=== PATIENT | female | born 1965 | race Caucasian/White ===

== ENCOUNTER 2017-06-29 14:07 | Emergency (ER) | payer OTHER ==
[~2017-06-29] VITALS: Ht 167.6 cm; Wt 82.0 kg
[2017-06-29 14:18] VITALS: BP 104/65; PULSE 67; RESP 17; TEMP 98.4; O2SAT 95
--- NOTE | 2017-06-29 14:29 | PD ---
HPI Chief Complaint: Fall Time Seen by Provider: 14:21 Travel History International Travel<30 days: No Contact w/Intl Traveler<30days: No Traveled to known affect area: No History of Present Illness HPI This is a 50-year-old female who presents for evaluation after a mechanical fall. Prior to arrival the patient reports that she tripped and fell on a curb , landing on her face and right hand. She is having some pain in the right periorbital region as well as in the right hand overlying the fourth metacarpal. Pain is mild, aching, constant, worse with movement and palpation. Denies any loss of consciousness, confusion or amnesia, nausea or vomiting, blurred vision, neck or back pain. Her last tetanus vaccination is unknown. Denies any anticoagulant use. She has no other complaints at this time. [facility] Past Medical History Depression: Yes Diminished Hearing: No Gastrointestinal Disorders: Yes (CHRONS) Hiatal Hernia: Yes Hypertension: Yes Influenza Vaccination: Yes ?: Not Past Surgical History Abdominal Surgery: Yes (HERNIA) Tonsillectomy: Yes Social History Alcohol Use: Yes (SOCIALLY) Tobacco Use: Yes (/2 PPD) Substance Use: No Allergies-Medications (Allergen,Severity, Reaction): Coded Allergies: No Known Allergies (Unverified , 06/29/17) Review of Systems Except as stated in HPI: all other systems reviewed are Neg Physical Exam Narrative GENERAL: Well-developed well-nourished female in no acute distress SKIN: Warm and dry. Some ecchymosis noted to the right superior orbital rim as well as bridge of the nose, an abrasion noted to the nose as well. HEAD: Atraumatic. Normocephalic. EYES: Pupils equal and round reactive to light extraocular muscles are intact, no proptosis. No scleral icterus. No injection or drainage. ENT: No nasal bleeding or discharge. Mucous membranes pink and moist. There is some tenderness to palpation in the right superior orbital rim. There is no septal hematoma. Normal dentition. NECK: Trachea midline. No JVD. CARDIOVASCULAR: Regular rate and rhythm. No murmur appreciated. RESPIRATORY: No accessory muscle use. Clear to auscultation. Breath sounds equal bilaterally. GASTROINTESTINAL: Abdomen soft, non-tender, nondistended. Hepatic and splenic margins not palpable. MUSCULOSKELETAL: Local tenderness to palpation over the right fourth metacarpal. Full range of motion of the right hand. No obvious deformity or bruising or soft tissue swelling. NEUROLOGICAL: Awake and alert. No obvious cranial nerve deficits. Motor grossly within normal limits. Normal speech. PSYCHIATRIC: Appropriate mood and affect; insight and judgment normal. Data Data Last Documented VS Vital Signs Date Time Temp Pulse Resp B/P (MAP) Pulse Ox O2 Delivery O2 Flow Rate FiO2 06/29/17 14:18 98.4 67 17 104/65 (78) 95 Room Air Orders Orders Tetanus/Diphtheria Tox Adult (Tetanus/Di (06/29/17 14:30) Ct Facial Bones W/O Iv Cont (06/29/17 ) Hand, Complete ([id number]) (06/29/17 ) Ed Discharge Order (06/29/17 16:43) [facility] Medical Decision Making Medical Screen Exam Complete: Yes Emergency Medical Condition: Yes Medical Record Reviewed: Yes Interpretation(s) CT facial bones Right hand x-ray Differential Diagnosis Facial contusion, fracture, septal hematoma Narrative Course 51-year-old female presents after mechanical fall with right hand overlying the fourth metacarpal as well as right-sided facial pain. CT of the facial bones as well as right hand x-ray will be obtained. Tetanus status updated. Imaging studies reveal no acute abnormalities. The patient is stable for discharge. Diagnosis Primary Impression: Facial contusion Additional Impression: Contusion of right hand Med/Other Pt SpecificInfo: No Change to Meds Disposition: 01 DISCHARGE HOME Condition: Stable Nitesh Mejia Jun 29, 2017 14:29
[2017-06-29] MEDS ORDERED: TETANUS/DIPHTHERIA TOXOID ADULT 0.5 ML VIAL IM ONE (14:30)
--- NOTE | 2017-06-29 15:05 | RADRPT ---
EXAM DATE/TIME: 06/29/2017 14:51 [facility] COMPARISON: No previous studies available for comparison. INDICATIONS : Right hand pain, tripped and fell while at work. MEDICAL HISTORY : None. SURGICAL HISTORY : None. ENCOUNTER: Initial ACUITY: 1 day PAIN SCORE: 6/10 LOCATION: Right hand, medial side FINDINGS: Three view examination of the right hand demonstrates no soft tissue swelling, dislocation, or fractu re. The carpal bones appear intact. The interphalangeal and metacarpophalangeal joints are intact. Bony mineralization is normal. CONCLUSION: Unremarkable examination of the right hand. Eliazar Baltazar MD on June 29, 2017 at 15:01 Board Certified Radiologist. This report was verified electronically.
--- NOTE | 2017-06-29 15:58 | RADRPT ---
EXAM DATE/TIME: 06/29/2017 15:26 [facility] COMPARISON: No previous studies available for comparison. INDICATIONS : Trauma, fall. Hit right side of face. RADIATION DOSE: 36.74 CTDIvol (mGy) MEDICAL HISTORY : Hypertension. SURGICAL HISTORY : None. ENCOUNTER: Initial ACUITY: 1 day PAIN SCORE: 5/10 LOCATION: Right facial TECHNIQUE: Volumetric scanning of the facial bones was performed. Using automated exposure control and adjustme nt of the mA and/or kV according to patient size, radiation dose was kept as low as reasonably achiev able to obtain optimal diagnostic quality images. DICOM format image data is available electronicall y for review and comparison. FINDINGS: ORBITS: The orbital and infraorbital osseous structures are intact. The retroconal structures have a normal configuration. No radiopaque foreign bodies are seen. NASAL BONE: The nasal bone and maxillary spine are intact ZYGOMATIC ARCHES: Symmetric without evidence of fracture. SINUSES: The maxillary, ethmoid and frontal sinuses are intact. No air-fluid levels seen. NASAL CAVITY: The nasal septum is intact and midline. The lacrimal ducts are intact. SOFT TISSUES: No radiopaque foreign bodies seen. Soft tissue swelling, mainly right supraorbital with small hematom a.. INTRACRANIAL: No intracranial air seen. CRIBIFORM PLATE: Grossly intact. CONCLUSION: No evidence of facial bone fracture. Isaac Casillas MD on June 29, 2017 at 15:51 Board Certified Radiologist. This report was verified electronically.
[2017-06-29 16:59] VITALS: BP 102/62
== END 2017-06-29 16:58 | disposition home or self-care (01) ==
LOC: NEPD 14:07
DX: S00.83XA Contusion of other part of head, initial encounter (principal); S60.221A Contusion of right hand, initial encounter; I10 Essential (primary) hypertension; F17.200 Nicotine dependence, unspecified, uncomplicated; Z23 Encounter for immunization; Z87.19 Personal history of other diseases of the digestive system; Z86.59 Personal history of other mental and behavioral disorders; W01.0XXA Fall on same level from slipping, tripping and stumbling without subsequent striking against object, initial encounter
CPT/HCPCS: 70486; 73130; 90471; 90714; 96372

== ENCOUNTER 2017-07-19 08:05 | Emergency (ER) | payer OTHER ==
[~2017-07-19] VITALS: Ht 165.1 cm; Wt 83.7 kg
[2017-07-19 08:18] VITALS: BP 141/78; PULSE 69; RESP 16; TEMP 98.4; O2SAT 96
[2017-07-19] MEDS ORDERED: DULO1CAP3 PO (09:12)
[2017-07-19] MEDS ORDERED: METO50TA PO (09:12)
[2017-07-19] MEDS ORDERED: HYDR50CA PO (09:12)
[2017-07-19] MEDS ORDERED: BUPR150CR PO (09:12)
[2017-07-19] MEDS ORDERED: LOMO2.5T PO (09:12)
[2017-07-19] MEDS ORDERED: AMLO10 PO (09:12)
[2017-07-19] MEDS ORDERED: LISI-515 PO (09:12)
[2017-07-19] MEDS ORDERED: SODIUM CHLOR 0.9% 1000 ML INJ 1,000 ML IV SCH (09:48)
--- NOTE | 2017-07-19 09:51 | PD ---
HPI Chief Complaint: GI Complaint Time Seen by Provider: 09:43 Travel History International Travel<30 days: No Contact w/Intl Traveler<30days: No Traveled to known affect area: No History of Present Illness HPI 51yo F with PMH of Crohn's disease presents to the ED with c/o generalized abdominal pain, bloody diarrhea for a few days. Associated with nausea but vomited only yesterday. Denies any fever, chest pain, sob, dysuria, hematuria, vaginal bleeding or discharge, focal weakness or numbness. PFSH Past Medical History Hx Anticoagulant Therapy: No Depression: Yes Cardiovascular Problems: Yes (HTN) Diabetes: No Diminished Hearing: No Gastrointestinal Disorders: Yes (CHRONS) Hiatal Hernia: Yes Hypertension: Yes ?: Not Past Surgical History Abdominal Surgery: Yes (HERNIA) Tonsillectomy: Yes Social History Alcohol Use: Yes (SOCIALLY) Tobacco Use: Yes (06/16 PPD) Substance Use: No Allergies-Medications (Allergen,Severity, Reaction): Coded Allergies: No Known Allergies (Unverified , 07/19/17) Reported Meds & Prescriptions Reported Meds & Active Scripts Active Cipro (Ciprofloxacin HCl) 500 Mg Tab 500 Mg PO BID 10 Days Flagyl (Metronidazole) 500 Mg Tab 500 Mg PO TID 10 Days Reported Lomotil (Diphenoxylate-Atropine) 2.5-0.025 Mg Tab 2 Tab PO Q6H PRN Hydroxyzine Pamoate 50 Mg Cap 50 Mg PO QID PRN Wellbutrin SR 12 HR (Bupropion HCl) 150 Mg Tab 150 Mg PO Q12HR Duloxetine DR (Duloxetine HCl) 60 Mg Capdr 60 Mg PO DAILY Norvasc (Amlodipine Besylate) 10 Mg Tab 10 Mg PO DAILY Metoprolol Tartrate 50 Mg Tab 50 Mg PO BID Lisinopril 20 Mg Tab 20 Mg PO DAILY Review of Systems Except as stated in HPI: all other systems reviewed are Neg Physical Exam Narrative GENERAL: 51yo F in mild distress. SKIN: Focused skin assessment warm/dry. HEAD: Atraumatic. Normocephalic. CARDIOVASCULAR: Regular rate and rhythm. No murmur appreciated. RESPIRATORY: No accessory muscle use. Clear to auscultation. Breath sounds equal bilaterally. GASTROINTESTINAL: Abdomen soft, +TTP lower abdomen, right more than left. MUSCULOSKELETAL: No obvious deformities. No clubbing. No cyanosis. No edema. NEUROLOGICAL: Awake and alert. No obvious cranial nerve deficits. Motor grossly within normal limits. Normal speech. PSYCHIATRIC: Appropriate mood and affect; insight and judgment normal. Data Data Last Documented VS Vital Signs Date Time Temp Pulse Resp B/P (MAP) Pulse Ox O2 Delivery O2 Flow Rate FiO2 07/19/17 11:55 76 18 138/75 (96) 98 Room Air 07/19/17 08:18 98.4 Orders Orders Complete Blood Count With Diff (07/19/17 09:48) Comprehensive Metabolic Panel (07/19/17 09:48) Lipase (07/19/17 09:48) Urinalysis - C+S If Indicated (07/19/17 09:48) Ct Abd/Pel W Iv Contrast(Rout) (07/19/17 09:48) Morphine Inj (Morphine Inj) (07/19/17 10:00) Ondansetron Inj (Zofran Inj) (07/19/17 10:00) Sodium Chlor 0.9% 1000 Ml Inj (Ns 1000 M (07/19/17 09:48) Prochlorperazine Inj (Compazine Inj) (07/19/17 10:30) Iohexol 350 Inj (Omnipaque 350 Inj) (07/19/17 11:02) Ciprofloxacin (Cipro) (07/19/17 12:00) Metronidazole (Flagyl) (07/19/17 12:00) Labs Laboratory Tests Test 07/19/17 10:01 White Blood Count 12.4 TH/MM3 Red Blood Count 4.91 MIL/MM3 Hemoglobin 14.3 GM/DL Hematocrit 44.2 % Mean Corpuscular Volume 90.0 FL Mean Corpuscular Hemoglobin 29.0 PG Mean Corpuscular Hemoglobin Concent 32.3 % Red Cell Distribution Width 12.1 % Platelet Count 512 TH/MM3 Mean Platelet Volume 6.8 FL Neutrophils (%) (Auto) 68.6 % Lymphocytes (%) (Auto) 19.8 % Monocytes (%) (Auto) 7.7 % Eosinophils (%) (Auto) 1.2 % Basophils (%) (Auto) 2.7 % Neutrophils # (Auto) 8.6 TH/MM3 Lymphocytes # (Auto) 2.4 TH/MM3 Monocytes # (Auto) 1.0 TH/MM3 Eosinophils # (Auto) 0.1 TH/MM3 Basophils # (Auto) 0.3 TH/MM3 CBC Comment DIFF FINAL Differential Comment Urine Collection Type CLEAN CATCH Urine Color YELLOW Urine Turbidity SLIGHTY CLOUDY Urine pH 7.0 Urine Specific [facility] 1.010 Urine Protein NEG mg/dL Urine Glucose (UA) NEG mg/dL Urine Ketones NEG mg/dL Urine Occult Blood NEG Urine Nitrite NEG Urine Bilirubin NEG Urine Leukocyte Esterase SMALL Urine WBC 3-5 /hpf Urine Squamous Epithelial Cells 0-5 /hpf Urine Amorphous Sediment MOD Microscopic Urinalysis Comment CULT NOT INDICATED Blood Urea Nitrogen 6 MG/DL Creatinine 0.87 MG/DL Random Glucose 101 MG/DL Total Protein 7.3 GM/DL Albumin 3.3 GM/DL Calcium Level 9.3 MG/DL Alkaline Phosphatase 109 U/L Aspartate Amino Transf (AST/SGOT) 13 U/L Alanine Aminotransferase (ALT/SGPT) 12 U/L Total Bilirubin 0.3 MG/DL Sodium Level 138 MEQ/L Potassium Level 4.2 MEQ/L Chloride Level 103 MEQ/L Carbon Dioxide Level 28.2 MEQ/L Anion Gap 7 MEQ/L Estimat Glomerular Filtration Rate 68 ML/MIN Lipase 115 U/L [facility] [place] Medical Decision Making Medical Screen Exam Complete: Yes Emergency Medical Condition: Yes Differential Diagnosis Crohn's exacerbation vs. diverticulitis vs. appendicitis Narrative Course 51yo F with abdominal pain and bloody diarrhea for a few days. Labs reviewed, WBC 12.4. H/H normal. Platelet elevated at 512. CMP unremarkable. Lipase normal. UA negative. CT a/p showed colitis of left colon. No perforation or abscess. Pt given compazine and morphine and NS IVF. Pt reevaluated at bedside and pain has resolved. Tolerating PO. Pt given cipro and flagyl. Pt is well appearing and has GI appointment in a few days. Will have pt try outpatient treatment first. Abdomen is soft, NT/ND. Return precautions given. Both cipro and hydroxyzine prolongs QT and pt told to hold off on hydroxyzine while on cipro. Diagnosis Primary Impression: Colitis Patient Instructions: General Instructions Departure Forms: Tests/Procedures Additional Instructions: Please follow up with your GI physician on your appointment date. Return to the ED if symptoms worsen. Med/Other Pt SpecificInfo: Prescription(s) given Scripts Ciprofloxacin (Cipro) 500 Mg Tab 500 MG PO BID for Infection for 10 Days, #20 TAB 0 Refills Prov: Radha Jefferson DO 07/19/17 Metronidazole (Flagyl) 500 Mg Tab 500 MG PO TID for Infection for 10 Days, TAB 0 Refills Prov: Radha Jefferson DO 07/19/17 Disposition: 01 DISCHARGE HOME Condition: Stable Radha Jefferson DO Jul 19, 2017 09:51
[2017-07-19] MEDS ORDERED: ONDANSETRON HCL 4 MG/2 ML VIAL IVP ONE (10:00)
[2017-07-19] MEDS ORDERED: MORPHINE SULFATE 4 MG/ML INJ IV PUSH ONE (10:00)
[2017-07-19 10:07] LABS: AUTOMATED NEUTROPHIL # 8.6 TH/MM3 (1.8-7.7); BASOPHIL # 0.3 TH/MM3 (0-0.2); BASOPHIL % 2.7 % (0.0-2.0); EOSINOPHIL # 0.1 TH/MM3 (0-0.4); EOSINOPHIL % 1.2 % (0.0-4.0); HEMATOCRIT 44.2 % (35.0-46.0); HEMOGLOBIN 14.3 GM/DL (11.6-15.3); LYMPH % 19.8 % (9.0-44.0); LYMPHOCYTE # 2.4 TH/MM3 (1.0-4.8); MEAN CORPUSCULAR HGB CONC 32.3 % (32.0-36.0); MEAN PLATELET VOLUME 6.8 FL (7.0-11.0); MONO % 7.7 % (0.0-8.0); NEUT % 68.6 % (16.0-70.0); PLATELET COUNT 512 TH/MM3 (150-450); RED BLOOD COUNT 4.91 MIL/MM3 (4.00-5.30); RED CELL DISTRIBUTION WIDTH 12.1 % (11.6-17.2); WHITE BLOOD COUNT 12.4 TH/MM3 (4.0-11.0)
[2017-07-19 10:09] LABS: BILIRUBIN, URINE NEG (NEG); BLOOD, URINE NEG (NEG); GLUCOSE,URINE NEG (NEG); KETONE, URINE NEG (NEG); NITRITE,URINE NEG (NEG); URINE LEUKOCYTE ESTERASE SMALL (NEG)
[2017-07-19 10:14] LABS: CHLORIDE 103 MEQ/L (98-107); SODIUM (NA) 138 MEQ/L (136-145)
[2017-07-19 10:15] LABS: URINE COLOR YELLOW (YELLW/STRAW)
[2017-07-19 10:16] LABS: AMORPHOUS SEDIMENT, URINE MOD; SQUAMOUS EPITHELIAL CELL URINE 0-5 /hpf (0-5)
[2017-07-19 10:17] LABS: ALBUMIN 3.3 GM/DL (3.4-5.0); CALCIUM 9.3 MG/DL (8.5-10.1)
[2017-07-19 10:18] LABS: BICARBONATE 28.2 MEQ/L (21.0-32.0); BLOOD UREA NITROGEN 6 MG/DL (7-18); GLUCOSE,RANDOM 101 MG/DL (74-106)
[2017-07-19 10:21] LABS: ALT (GPT) 12 U/L (10-53); AST (GOT) 13 U/L (15-37); CREATININE 0.87 MG/DL (0.50-1.00); GLOMERULAR FILTRATION RATE 68 ML/MIN (>89)
[2017-07-19 10:23] LABS: TOTAL PROTEIN 7.3 GM/DL (6.4-8.2)
[2017-07-19 10:24] LABS: ALKALINE PHOSPHATASE 109 U/L (45-117)
[2017-07-19 10:27] LABS: TOTAL BILIRUBIN ADULT 0.3 MG/DL (0.2-1.0)
[2017-07-19] MEDS ORDERED: PROCHLORPERAZINE INJ 10 MG/2 ML VIAL IV PUSH ONE (10:30)
[2017-07-19] MEDS ORDERED: IOHEXOL 350 MG/ML 10 ML VIAL (for RAD DIAG) IVCONTRAST ONE (11:02)
--- NOTE | 2017-07-19 11:13 | RADRPT ---
EXAM DATE/TIME: 07/19/2017 10:58 [facility] COMPARISON: No previous studies available for comparison. INDICATIONS : Diffuse abdominal pain and bloody diarrhea. IV CONTRAST: 90 cc Omnipaque 350 (iohexol) IV ORAL CONTRAST: No oral contrast ingested. RADIATION DOSE: 15.14 CTDIvol (mGy) MEDICAL HISTORY : Hypertension. Crohns disease. Hernia, hiatal. SURGICAL HISTORY : Tonsillectomy. Hernia repair. ENCOUNTER: Initial ACUITY: 3 days PAIN SCALE: 6/10 LOCATION: abdomen TECHNIQUE: Volumetric scanning of the abdomen and pelvis was performed. Using automated exposure control and ad justment of the mA and/or kV according to patient size, radiation dose was kept as low as reasonably achievable to obtain optimal diagnostic quality images. DICOM format image data is available electro nically for review and comparison. FINDINGS: LOWER LUNGS: Bibasilar densities. LIVER: Homogeneous density without lesion. There is no dilation of the biliary tree. No calcified gallston es. SPLEEN: Normal size without lesion. PANCREAS: Within normal limits. KIDNEYS: Normal in size and shape. There is no mass, stone or hydronephrosis. ADRENAL GLANDS: Within normal limits. VASCULAR: There is no aortic aneurysm. BOWEL/MESENTERY: Wall thickening and slight inflammatory changes of the distal transverse colon, descending colon, sig moid colon and rectum. No perforation.. There is no free intraperitoneal air or fluid. ABDOMINAL WALL: That containing ventral wall hernia. There is also bulging of the lower abdomen in the region of the umbilicus RETROPERITONEUM: There is no lymphadenopathy. BLADDER: No wall thickening or mass. REPRODUCTIVE: Within normal limits. INGUINAL: There is no lymphadenopathy or hernia. MUSCULOSKELETAL: Degenerative changes and scoliosis lumbar spine. CONCLUSION: 1. Colitis of the left colon. No perforation or abscess. 2. Ventral wall hernias. 3. Bibasilar densities likely atelectasis. Rodolfo Wilkerson MD on July 19, 2017 at 11:09 Board Certified Radiologist. This report was verified electronically.
[2017-07-19 11:55] VITALS: BP 138/75; PULSE 76; RESP 18; O2SAT 98
[2017-07-19] MEDS ORDERED: metroNIDAZOLE 500 MG TAB PO ONE (12:00)
[2017-07-19] MEDS ORDERED: CIPROFLOXACIN 500 MG TAB PO ONE (12:00)
[2017-07-19] MEDS ORDERED: METR-1 PO (12:08)
[2017-07-19] MEDS ORDERED: CIPR-9 PO (12:08)
[2017-07-19 12:10] VITALS: RESP 16
== END 2017-07-19 12:28 | disposition home or self-care (01) ==
LOC: PHED 08:05
DX: K52.9 Noninfective gastroenteritis and colitis, unspecified (principal); K50.90 Crohn's disease, unspecified, without complications; K43.9 Ventral hernia without obstruction or gangrene; I10 Essential (primary) hypertension; F32.9 Major depressive disorder, single episode, unspecified; F17.200 Nicotine dependence, unspecified, uncomplicated; Z79.899 Other long term (current) drug therapy
CPT/HCPCS: 74177; 80053; 81001; 83690; 85025; 96361; 96374; 96375; 99285; J0780; J2270; J7030; Q9967